=== PATIENT | female | born 1955 | race Caucasian/White ===

== ENCOUNTER 2018-06-26 15:05 | Emergency (ER) | payer MEDICARE, OTHER ==
[~2018-06-26] VITALS: Ht 165.1 cm; Wt 110.0 kg
[2018-06-26] MEDS ORDERED: HYDR-4455 PO (15:20)
[2018-06-26] MEDS ORDERED: HYPERTENTION PO (15:20)
[2018-06-26] MEDS ORDERED: MAGNESIUM SULFATE 2 GM, MVI, ADULT NO.1 WITH VIT K 10 ML, THIAMINE HCL 100 MG, FOLIC AC... IV ONE ×5 (15:45)
[2018-06-26] MEDS ORDERED: SODIUM CHLORIDE 0.9% 1,000 ML IV ONE (15:45)
[2018-06-26 16:03] LABS: BASOPHILS % (AUTO) 1.4 % (0.0-2.0); EOSINOPHILS % (AUTO) 0.8 % (1.0-6.0); HEMATOCRIT 31.1 % (36-46); HEMOGLOBIN 9.6 g/dL (12.0-16.0); LYMPHOCYTES # (AUTO) 1.5 K/uL (1.0-4.8); LYMPHOCYTES % (AUTO) 24.6 % (22.0-44.0); MEAN CORPUSCULAR HEMOGLOBIN 22.9 pg (26.0-34.0); MEAN CORPUSCULAR HGB CONC 30.7 G/dL (31.0-37.0); MEAN CORPUSCULAR VOLUME 75 fL (80-100); MONOCYTES # (AUTO) 0.7 K/uL (0.1-1.0); MONOCYTES % (AUTO) 11.1 % (2.0-9.0); NEUTROPHILS # (AUTO) 3.7 K/uL (1.8-7.7); NEUTROPHILS % (AUTO) 62.1 % (40.0-70.0); PLATELET COUNT (AUTO) 354 K/uL (150-450); RED BLOOD CELL COUNT(AUTO) 4.18 MIL/uL (4.00-5.20)
[2018-06-26 16:09] LABS: CREATININE 1.01 mg/dL (0.60-1.30); POTASSIUM 3.7 mmol/L (3.5-5.1)
[2018-06-26 16:14] LABS: ALBUMIN 3.5 g/dL (3.4-5.0); BILIRUBIN,TOTAL 0.4 mg/dL (0.1-1.0); TOTAL PROTEIN, SERUM 7.1 g/dL (6.4-8.2)
[2018-06-26 16:27] LABS: PLATELET MORPHOLOGY COMMENT GIANT PLTS PRESENT
[2018-06-26 18:26] LABS: APPEARANCE,URINE CLEAR (CLEAR); BILIRUBIN,URINE NEGATIVE (NEGATIVE); GLUCOSE, URINE (UA) NEGATIVE (NEGATIVE); KETONES,URINE NEGATIVE (NEGATIVE); LEUKOCYTE ESTERASE ,URINE NEGATIVE (NEGATIVE); NITRATE,URINE NEGATIVE (NEGATIVE); OCCULT BLOOD,URINE NEGATIVE (NEGATIVE); PH,URINE 6.5 (5.0-8.0); PROTEIN,URINE NEGATIVE (NEGATIVE); UROBILINOGEN,URINE 0.2 mg/dL (<=1.0)
[2018-06-26 18:29] LABS: AMPHET/METH SCREEN,URINE NEGATIVE (NEGATIVE); BARBITURATE SCREEN, URINE NEGATIVE (NEGATIVE); BENZODIAZEPINES SCREEN,URINE NEGATIVE (NEGATIVE); CANNABINOID SCREEN,URINE NEGATIVE (NEGATIVE); COCAINE SCREEN,URINE NEGATIVE (NEGATIVE); METHADONE SCREEN, URINE NEGATIVE (NEGATIVE); OPIATE SCREEN,URINE NEGATIVE (NEGATIVE)
[2018-06-26 18:30] LABS: PHENCYCLIDINE SCREEN,URINE NEGATIVE (NEGATIVE)
[2018-06-26 19:47] VITALS: BP 132/62
[2018-06-26] MEDS ORDERED: ChlordiazePOXIDE HCL 25 MG CAPSULE PO ONE (20:30)
== END 2018-06-26 20:34 | disposition home or self-care (01) ==
LOC: EMS 15:05
DX: F10.229 Alcohol dependence with intoxication, unspecified (principal); F11.20 Opioid dependence, uncomplicated; D50.9 Iron deficiency anemia, unspecified; I10 Essential (primary) hypertension; Y90.8 Blood alcohol level of 240 mg/100 ml or more; Z79.899 Other long term (current) drug therapy
CPT/HCPCS: 36415; 80053; 80307; 81003; 85025; 96365; 96366; 99283; G0480; J3411; J3475; J3490 ×2; J7030